=== PATIENT | female | born 1980 | race Caucasian/White ===

== ENCOUNTER 2021-10-03 19:28 | Emergency (ER) | payer OTHER, SELFPAY ==
[2021-10-03 19:36] VITALS: BP 158/98; PULSE 90; RESP 16; TEMP 37.3; O2SAT 100
--- NOTE | 2021-10-03 19:38 | ED.URI ---
HPI - URI/Sore Throat General Chief Complaint: Upper Respiratory Infection Stated Complaint: throat hurts,hard to swallow Time Seen by Provider: 10/03/21 19:39 Source: patient History of Present Illness HPI Narrative: PATIENT PRESENTS WITH A SORE THROAT THAT STARTED TODAY. PATIENT ALSO REPORTS NASAL CONGESTION, RUNNY NOSE. NO TROUBLE SWALLOWING AND NO DROOLING. PATIENT STATES SHE HAD COVID 15 DAYS AGO. REPORTS NASAL CONGESTION CONTINUES. TAKEING MUCINEX AND IBUPROFEN FOR SYMPTOMS. Related Data Home Medications Medication Instructions Recorded Confirmed aspirin [Aspirin Low Dose] 81 mg PO DAILY 10/03/21 10/03/21 lisinopril 10 mg PO DAILY 10/03/21 10/03/21 metoprolol succinate 25 mg PO DAILY 10/03/21 10/03/21 Allergies Allergy/AdvReac Type Severity Reaction Status Date / Time Sulfa (Sulfonamide Allergy Mild Rash Verified 10/03/21 19:47 Antibiotics) Review of Systems Review of Systems: CONSTITUTIONAL: Denies chills, or sweats. Reports fever and generalized body aches EYES: Denies visual changes, redness, or discharge. ENT: Denies otalgia. Reports nasal congestion runny nose and sore throat CARDIOVASCULAR: Denies chest pain, palpitations, or edema. RESPIRATORY: Denies dyspnea. Reports occasional cough GASTROINTESTINAL: Denies abdominal pain, nausea, vomiting, or diarrhea. GENITOURINARY: Denies dysuria or hematuria. SKIN: Denies rash or itching. MUSCULOSKELETAL: Denies back pain, joint pain, or myalgia. Reports generalized body aches NEUROLOGIC: Denies headache, numbness, or weakness. PSYCHIATRIC: Denies anxiety or depression. PMFSH Comments At time of signature, agree with nursing past medical, surgical, social and family history. There is no relevant family history pertinent to the presenting complaint Exam Narrative: The patient is a well-developed, well-nourished in no acute distress. SKIN: Skin is warm and dry without erythema, swelling or exudate. There is good turgor. No tenting. HEAD: Atraumatic. Normocephalic. No temporal or scalp tenderness. EYES: Moist and bright. Sclera and conjunctivae normal. No discharge. PERRLA. Extraocular motions intact. Gross visual acuity intact. EARS: Pinna is normal shape and contour. Clear external auditory canals. TM pearly vines with good cone of light, no erythema or suppuration. Bilateral cerumen noted no gross hearing deficit. NOSE: pink, moist mucosa with good air movement. Clear rhinorrhea without nasal flaring. Septum midline. Mouth: moist mucous membranes. THROAT; mild erythema noted to posterior oropharynx with moderate postnasal drainage. Without exudate or ulceration.. Uvula midline. Normal movement of soft palate. NECK: Supple and nontender with full range of motion without discomfort. No meningeal signs. LUNGS: Equal and bilateral breath sounds without wheezes, rales or rhonchi. CHEST: The chest wall is without retractions or use of accessory muscles. HEART: Has a regular rate and rhythm without murmur, gallops, click or rub. ABDOMEN: Soft, nontender with positive active bowel sounds. No rebound tenderness. EXTREMITIES: Without cyanosis, clubbing or edema. Equal 2+ distal pulses and 2 second capillary refill noted. NEUROLOGIC: alert, active, . The patient moves all extremities with normal muscle strength. Normal muscle tone is noted. Normal coordination is noted. NO focal neurological findings noted. Course Course Level of Care: Express Care Visit Vital Signs Vital signs: Vital Signs Temperature 37.3 C 10/03/21 19:36 Pulse Rate 90 10/03/21 19:36 Respiratory Rate 16 10/03/21 19:36 Blood Pressure 158/98 H 10/03/21 19:36 Pulse Oximetry 100 10/03/21 19:36 Temperature 37.3 C 10/03/21 19:36 Pulse Rate 90 10/03/21 19:36 Respiratory Rate 16 10/03/21 19:36 Blood Pressure 158/98 H 10/03/21 19:36 Pulse Oximetry 100 10/03/21 19:36 Addressed elevated BP today. Today's blood pressure higher than recommended range. Discussed importance
== END 2021-10-03 19:55 | disposition home or self-care (01) ==
PROVIDERS: Emergency Provider Nurse Practitioner Family; PCP Internal Medicine Infectious Disease
DX: J06.9 Acute upper respiratory infection, unspecified (principal); J02.9 Acute pharyngitis, unspecified; Z79.82 Long term (current) use of aspirin
CPT/HCPCS: 87081; 87880; 99213; G0463